=== PATIENT | male | born 1965 | race Caucasian/White ===

== ENCOUNTER 2016-05-25 09:00 | Outpatient (RCR) | payer BC ==
--- NOTE | 2016-04-26 13:15 | PT/OT/ST INITIAL EVALUATION ---
[facility], [facility]. PHYSICAL/OCCUPATIONAL THERAPY [address] [place] [id number] PLAN OF CARE/ASSESSMENT FOR OUTPATIENT REHABILITATION (Complete for Initial Claims Only) 1. PATIENT'S NAME Reese Hook 2. ACC. No [id number] 3. PRIMARY DX Low back pain 4. SECONDARY DX weakness 5. ONSET DATE Worsening in the summer 6. REFERRAL DATE 7. SOC. DATE/TIME 04/19/16 08:19 8. PRIOR LEVEL OF FUNCTION; PERTINENT HISTORY (Prior therapy results, reason for referral.) S: Prior to therapy, the patient did consent to today's evaluation and treatment. The patient is a 50-year-old male referred to physical therapy by Wendy Marvin APRN to address low back pain. The patient does rate his overall and general health as fair. The patient states he has suffered from low back pain for several years, however, this has been worsening over time and significant worsening since summer. The patient does state that he feels this condition worsened over the summer as he was doing a lot of traveling and sitting in the car. The patient states he does get significant sciatica symptoms in his right lower extremity and occasionally left foot numbness, but does feel the right lower extremity is more involved than the left. Activities that bother him most include lifting, and bending significantly over, which increases his back pain. Walking for increased distances additionally increases his pain as he used to walk for exercise, but is unable to do so at this time. Prior function: Includes the patient being employed as a business operations specialist, being able to walk for exercise and also perform exercise activities to stay in shape. Current function: Currently the patient is unable to go for walks for exercise. He is able to stand for approximately 10 minutes before needing to sit down and take a break. He is able to walk for 1/4 a mile or less before needing to take a break. He is unable to work at this time as well. Therapy History: No previous physical therapy has been performed for this condition. No obstacles to delivery of care are observed. Maximal pain level 6 to 7/10. The patient describes the pain as dull ache in his low back with numbness in the left foot and achy sensation going down his right lower extremity with symptoms primarily staying in the posterior leg. Aggravating factors, once again, include prolonged positions, lifting or bending completely over. Relieving factors include time released Tylenol, sitting and slightly leaning forward. Past medical history: Includes hypertension, previous ablation to his heart, depression, allergies and sleep apnea. Medication list: Include Lamictal and a full aspirin daily. The patient's goal for physical therapy is to have decreased pain and to be more active to return to exercise and to be able to pursue employment again and have more choices for employment. 9. INITIAL ASSESSMENT/SAFETY PRECAUTIONS/MEDICAL COMPLICATIONS (Level of function at start of care. Be specific, use objective measures, list problems.) O: APPEARANCE AND OBSERVATION: The patient presents as a middle aged male who ambulates with a right Trendelenburg gait pattern. The patient additionally has a slightly forward flexed posture. PALPATION: With palpation the patient does have increased tone and tightness throughout the lower thoracic and lumbar spine paraspinals. SPECIAL TESTS: Include heel-walk and toe-walk, which are within normal limits. 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 The patient additionally had a positive right Trendelenburg test. RANGE OF MOTION/FLEXIBILITY: Throughout the lumbar spine is within functional limits and grossly equal bilaterally. Flexibility of the hamstring as measured at the popliteal angle on the right is 138 degrees, on the left 130 degrees. Piriformis flexibility is 15% limited on the right, 30% limited on the left. STRENGTH: Throughout bilateral lower extremities are grossly 4+/5 throughout with the exception of hip abduction, which tested 4/5 bilaterally. TODAY'S TREATMENT: Following the initial evaluation, therapeutic exercise was performed and issued as a home exercise program with emphasis on lumbar stabilization activities. An ultrasound treatment was then performed to the right sacroiliac joint, piriformis and bilateral lumbar spine paraspinals. 10. INITIAL POC: (Specify procedures, modalities, short and shelter goals) A: The patient presents at physical therapy with diagnosis of low back pain with resultant decreased flexibility, decreased gait, decreased activity tolerance, increased pain, and increased radicular symptoms. PROGNOSIS: This patient has a good prognosis with regular therapy attendance and compliance with home exercise program. This patient is expected to benefit from physical therapy services in order to have decreased pain, increased strength and mobility to return to prior activities. OUTCOME ASSESSMENT: Modified Oswestry low back pain disability questionnaire which scored 46% disability. GOALS: 1. The patient to be independent and compliant with home exercise program in 1 week. 2. The patient with a 50% decrease in maximum low back pain in 3 weeks to allow standing for at least 20 minutes to prepare a meal. 3. The patient with no reports of lower extremity radicular symptoms in 5 weeks to allow walking at least 1 mile for exercise. 4. The patient with a Modified Oswestry low back pain disability questionnaire no more than 20 % disability in 6 weeks to allow return to unlimited prior activity to pursue employment. The diagnosis, prognosis, treatment plan, risks and expected outcome were discussed with the patient and the patient did agree to today's established plan of care. P: Plan to treat the patient 2 times per week for 6 weeks in order to address low back pain. Therapeutic treatments to include modalities to decrease pain, inflammation and spasming. Manual therapy techniques as indicated. Therapeutic exercise targeting active range of motion and lumbar stabilization activities, gait training, balance and proprioceptive training, and patient education and home exercise program to be advanced as warranted. 11. PHYSICIAN SIGNATURE ? ON FILE OR ENTER HERE: 12. DATE: I certify the need for these services furnished under this plan of care and if for partial hospitalization. 13. CERTIFICATION FROM THROUGH
[~2016-05-25 09:00] MED LIST: ALBU8.5H2 IH; CETI10TA76 PO; DILT240C PO; LOVA40TA2 PO; LTH300C PO; MELO-249 PO; NF-FLON16G; TADA5TAB2 PO; TEST100V IM; VENL75TA2 PO
== END 2016-06-03 09:05 | disposition home or self-care (01) ==
LOC: PT 09:00
PROVIDERS: ATTEND Nurse Practitioner Family
DX: M62.838 Other muscle spasm (principal); M54.5 Low back pain